=== PATIENT | female | born 1955 | race American Indian/Alaskan Native ===

== ENCOUNTER 2019-01-21 09:59 | Outpatient (CLI) | payer MEDICARE ==
[2019-01-21] MEDS ORDERED: XYLOCAINE TOPICAL 4% TP ONE (11:00)
== END 2019-01-21 10:00 | disposition home or self-care (01) ==
LOC: WOUND 09:59
PROVIDERS: ATTEND Surgery
DX: E11.621 Type 2 diabetes mellitus with foot ulcer (principal); L97.512 Non-pressure chronic ulcer of other part of right foot with fat layer exposed; E11.22 Type 2 diabetes mellitus with diabetic chronic kidney disease; I12.0 Hypertensive chronic kidney disease with stage 5 chronic kidney disease or end stage renal disease; N18.6 End stage renal disease; E11.40 Type 2 diabetes mellitus with diabetic neuropathy, unspecified; F17.210 Nicotine dependence, cigarettes, uncomplicated; Z99.2 Dependence on renal dialysis; Z86.73 Personal history of transient ischemic attack (TIA), and cerebral infarction without residual deficits
CPT/HCPCS: 11043; G0463; 99205

== ENCOUNTER 2019-01-28 10:58 | Outpatient (CLI) | payer MEDICARE ==
[2019-01-28] MEDS ORDERED: SILVER NITRATE TP ONE (11:07)
[2019-01-28] MEDS ORDERED: XYLOCAINE TOPICAL 4% TP ONE (11:07)
== END 2019-01-28 10:59 | disposition home or self-care (01) ==
LOC: WOUND 10:58
PROVIDERS: ATTEND Surgery
DX: E11.621 Type 2 diabetes mellitus with foot ulcer (principal); L97.512 Non-pressure chronic ulcer of other part of right foot with fat layer exposed; E11.22 Type 2 diabetes mellitus with diabetic chronic kidney disease; I12.0 Hypertensive chronic kidney disease with stage 5 chronic kidney disease or end stage renal disease; N18.6 End stage renal disease; E11.40 Type 2 diabetes mellitus with diabetic neuropathy, unspecified; F17.210 Nicotine dependence, cigarettes, uncomplicated; Z99.2 Dependence on renal dialysis; Z86.73 Personal history of transient ischemic attack (TIA), and cerebral infarction without residual deficits
CPT/HCPCS: 36415; 71046; 73721; 80048; 83036; 93925

== ENCOUNTER 2019-01-28 12:15 | Outpatient (CLI) | payer MEDICARE ==
[2019-01-28 13:24] LABS: Calcium 8.9 mg/dL (8.4-10.2)
--- NOTE | 2019-01-28 20:14 | XRay Report ---
PROCEDURE: XR CHEST ROUTINE 2V TECHNIQUE: PA and lateral chest radiographs were obtained. HISTORY: E11.621 TYPE 2 DM/L97.413 NONPRESSURE CHRONIC ULCER OF R HEEL COMPARISONS: None. FINDINGS: Heart: Normal. Mediastinum/Vessels: Normal. Lungs/Pleural space: Normal. Bony thorax: No acute osseous abnormality. There is a left-sided dialysis catheter catheter tips at the cavoatrial junction IMPRESSION: Normal examination. This document is electronically signed by Kelvin Escobedo MD., January 28 2019 08:12:11 PM ET
--- NOTE | 2019-01-28 20:28 | Magnetic Resonance Report ---
PROCEDURE: MRI RIGHT ANKLE WITHOUT CONTRAST TECHNIQUE: Magnetic resonance imaging of the RIGHT ankle was performed using standard pulse sequence s. CPT 53157 HISTORY: Chronic ulceration right heel. Pain. COMPARISONS: None . FINDINGS: The signal intensity from the bones of the ankle appear normal. No signal changes are seen that would suggest osteomyelitis. There appears to be a cutaneous ulcer visualized posterior aspect of the uret er just posterior to the insertion of the Achilles tendon on the calcaneus. The Achilles tendon itsel f appears normal as are the adjacent bony structures. The plantar fascia is also unremarkable. The ti biotalar joint space is well-preserved. The tibialis posterior, the flexor digitorum longus and flexor hallucis longus as well as the peroneu s tendons are intact. The anterior talofibular ligament and posterior talofibular ligaments appear in tact. Deltoid ligament is unremarkable. IMPRESSION: Small cutaneous ulceration visualized posterior aspect of the heel just posterior to the insertion of the Achilles tendon on the calcaneus. No other abnormalities are identified. No evidenc e of osteomyelitis. . This document is electronically signed by Oz Stevens MD., January 28 2019 08:26:59 PM ET
--- NOTE | 2019-01-30 13:36 | Vascular Lab Report ---
PROCEDURE: VL ARTERIAL DUPLEX LE BILAT TECHNIQUE: Arterial duplex Doppler ultrasound of bilateral lower extremities. HISTORY: E11.621 TYPE 2 DM/L97.413 NONPRESSURE CHRONIC ULCER OF HEEL COMPARISON: None FINDINGS: There is elevated velocity at the right superficial femoral artery origin measured at 225 cm/s. There is a segment of occlusion involving the mid superficial femoral artery. This is reconstituted mid to distally. There is flow in the calf arteries although slightly diminished. Flow appears monophasic t hroughout the majority of right lower extremity. On the left there is elevated flow velocity in the proximal SFA measured up to 324 cm/s. There is als o elevated flow velocity in the deep femoral artery measured at 379 cm/s.. This suggests stenosis in both areas. In the right common femoral artery there is mild relative elevation in flow velocity yoon ured at 192 cm/s as opposed to 82 cm/s proximally. This suggests mild stenosis. There is predominantl y monophasic flow throughout the left lower extremity. IMPRESSION: Monophasic flow throughout lower extremities indicative of bilateral significant arterial disease. Short occluded segment of right superficial femoral artery with reconstituted in the mid to distal SF A. Also findings suggesting involving proximal right SFA. Findings indicate stenosis of greater than 75% involving proximal left SFA and deep femoral artery. P robable mild stenosis involving the mid common femoral artery on the left as well. This document is electronically signed by Verito Chiang MD., January 30 2019 01:33:54 PM ET
== END 2019-01-28 12:16 | disposition home or self-care (01) ==
LOC: VAS 12:15
PROVIDERS: ATTEND Surgery
DX: E11.621 Type 2 diabetes mellitus with foot ulcer (principal); L97.412 Non-pressure chronic ulcer of right heel and midfoot with fat layer exposed; I77.89 Other specified disorders of arteries and arterioles
CPT/HCPCS: 36415; 71046; 73721; 80048; 83036; 93925

== ENCOUNTER 2019-02-04 10:59 | Outpatient (CLI) | payer MEDICARE ==
[2019-02-04] MEDS ORDERED: XYLOCAINE TOPICAL 4% TP ONE (11:03)
[2019-02-04] MEDS ORDERED: SILVER NITRATE TP ONE (11:03)
== END 2019-02-04 11:00 | disposition home or self-care (01) ==
LOC: WOUND 10:59
PROVIDERS: ATTEND Surgery
DX: E11.621 Type 2 diabetes mellitus with foot ulcer (principal); L97.512 Non-pressure chronic ulcer of other part of right foot with fat layer exposed; E11.22 Type 2 diabetes mellitus with diabetic chronic kidney disease; I12.0 Hypertensive chronic kidney disease with stage 5 chronic kidney disease or end stage renal disease; N18.6 End stage renal disease; E11.40 Type 2 diabetes mellitus with diabetic neuropathy, unspecified; F17.210 Nicotine dependence, cigarettes, uncomplicated; Z99.2 Dependence on renal dialysis; Z86.73 Personal history of transient ischemic attack (TIA), and cerebral infarction without residual deficits

== ENCOUNTER 2019-02-10 07:48 | Outpatient (CLI) | payer MEDICARE | END 2019-02-10 07:49 | disposition home or self-care (01) | LOC: WOUND 07:48 | PROVIDERS: ATTEND Surgery | DX: E11.621 Type 2 diabetes mellitus with foot ulcer (principal); L97.413 Non-pressure chronic ulcer of right heel and midfoot with necrosis of muscle; E11.22 Type 2 diabetes mellitus with diabetic chronic kidney disease; I12.0 Hypertensive chronic kidney disease with stage 5 chronic kidney disease or end stage renal disease; N18.6 End stage renal disease; E11.40 Type 2 diabetes mellitus with diabetic neuropathy, unspecified; F17.210 Nicotine dependence, cigarettes, uncomplicated; Z99.2 Dependence on renal dialysis; Z86.73 Personal history of transient ischemic attack (TIA), and cerebral infarction without residual deficits | CPT/HCPCS: 82962; G0277; 99183 ==

== ENCOUNTER 2019-02-13 07:38 | Outpatient (CLI) | payer MEDICARE ==
[2019-02-13] MEDS ORDERED: XYLOCAINE TOPICAL 4% TP ONE (11:00)
== END 2019-02-13 07:39 | disposition home or self-care (01) ==
LOC: WOUND 07:38
PROVIDERS: ATTEND Surgery
DX: E11.621 Type 2 diabetes mellitus with foot ulcer (principal); L97.413 Non-pressure chronic ulcer of right heel and midfoot with necrosis of muscle; E11.22 Type 2 diabetes mellitus with diabetic chronic kidney disease; I12.0 Hypertensive chronic kidney disease with stage 5 chronic kidney disease or end stage renal disease; N18.6 End stage renal disease; E11.40 Type 2 diabetes mellitus with diabetic neuropathy, unspecified; F17.210 Nicotine dependence, cigarettes, uncomplicated; Z99.2 Dependence on renal dialysis; Z86.73 Personal history of transient ischemic attack (TIA), and cerebral infarction without residual deficits
CPT/HCPCS: 11044; G0277; 82962; 99183

== ENCOUNTER 2019-02-14 08:00 | Outpatient (CLI) | payer MEDICARE | END 2019-02-14 08:01 | disposition home or self-care (01) | LOC: WOUND 08:00 | PROVIDERS: ATTEND Surgery | DX: E11.621 Type 2 diabetes mellitus with foot ulcer (principal); L97.413 Non-pressure chronic ulcer of right heel and midfoot with necrosis of muscle; E11.22 Type 2 diabetes mellitus with diabetic chronic kidney disease; I12.0 Hypertensive chronic kidney disease with stage 5 chronic kidney disease or end stage renal disease; N18.6 End stage renal disease; E11.40 Type 2 diabetes mellitus with diabetic neuropathy, unspecified; F17.210 Nicotine dependence, cigarettes, uncomplicated; Z99.2 Dependence on renal dialysis; Z86.73 Personal history of transient ischemic attack (TIA), and cerebral infarction without residual deficits | CPT/HCPCS: 82962; 99183; G0277 ==

== ENCOUNTER 2019-02-17 07:44 | Outpatient (CLI) | payer MEDICARE | END 2019-02-17 07:45 | disposition home or self-care (01) | LOC: WOUND 07:44 | PROVIDERS: ATTEND Surgery | DX: E11.621 Type 2 diabetes mellitus with foot ulcer (principal); L97.413 Non-pressure chronic ulcer of right heel and midfoot with necrosis of muscle; E11.22 Type 2 diabetes mellitus with diabetic chronic kidney disease; N18.6 End stage renal disease; I12.0 Hypertensive chronic kidney disease with stage 5 chronic kidney disease or end stage renal disease; E11.40 Type 2 diabetes mellitus with diabetic neuropathy, unspecified; F17.210 Nicotine dependence, cigarettes, uncomplicated; Z99.2 Dependence on renal dialysis; Z86.73 Personal history of transient ischemic attack (TIA), and cerebral infarction without residual deficits | CPT/HCPCS: 82962; G0277; 99183 ==

== ENCOUNTER 2019-02-19 07:51 | Outpatient (CLI) | payer MEDICARE | END 2019-02-19 07:52 | disposition home or self-care (01) | LOC: WOUND 07:51 | PROVIDERS: ATTEND Surgery | DX: E11.621 Type 2 diabetes mellitus with foot ulcer (principal); L97.413 Non-pressure chronic ulcer of right heel and midfoot with necrosis of muscle; E11.22 Type 2 diabetes mellitus with diabetic chronic kidney disease; N18.6 End stage renal disease; I12.0 Hypertensive chronic kidney disease with stage 5 chronic kidney disease or end stage renal disease; E11.40 Type 2 diabetes mellitus with diabetic neuropathy, unspecified; F17.210 Nicotine dependence, cigarettes, uncomplicated; Z99.2 Dependence on renal dialysis; Z86.73 Personal history of transient ischemic attack (TIA), and cerebral infarction without residual deficits | CPT/HCPCS: 82962; G0277; 99183 ==

== ENCOUNTER 2019-02-20 06:59 | Outpatient (CLI) | payer MEDICARE | END 2019-02-20 07:00 | disposition home or self-care (01) | LOC: WOUND 06:59 | PROVIDERS: ATTEND Surgery | DX: E11.621 Type 2 diabetes mellitus with foot ulcer (principal); L97.413 Non-pressure chronic ulcer of right heel and midfoot with necrosis of muscle; E11.22 Type 2 diabetes mellitus with diabetic chronic kidney disease; N18.6 End stage renal disease; I12.0 Hypertensive chronic kidney disease with stage 5 chronic kidney disease or end stage renal disease; E11.40 Type 2 diabetes mellitus with diabetic neuropathy, unspecified; F17.210 Nicotine dependence, cigarettes, uncomplicated; Z99.2 Dependence on renal dialysis; Z86.73 Personal history of transient ischemic attack (TIA), and cerebral infarction without residual deficits | CPT/HCPCS: 82962; G0277; 99183 ==

== ENCOUNTER 2019-02-25 07:46 | Outpatient (CLI) | payer MEDICARE | END 2019-02-25 07:47 | disposition home or self-care (01) | LOC: WOUND 07:46 | PROVIDERS: ATTEND Surgery | DX: E11.621 Type 2 diabetes mellitus with foot ulcer (principal); L97.413 Non-pressure chronic ulcer of right heel and midfoot with necrosis of muscle; E11.22 Type 2 diabetes mellitus with diabetic chronic kidney disease; N18.6 End stage renal disease; I12.0 Hypertensive chronic kidney disease with stage 5 chronic kidney disease or end stage renal disease; E11.40 Type 2 diabetes mellitus with diabetic neuropathy, unspecified; F17.210 Nicotine dependence, cigarettes, uncomplicated; Z99.2 Dependence on renal dialysis; Z86.73 Personal history of transient ischemic attack (TIA), and cerebral infarction without residual deficits | CPT/HCPCS: 82962; G0277; 99183 ==

== ENCOUNTER 2019-02-26 07:48 | Outpatient (CLI) | payer MEDICARE ==
[2019-02-26] MEDS ORDERED: SILVER NITRATE TP ONE (09:30)
[2019-02-26] MEDS ORDERED: XYLOCAINE TOPICAL 4% TP ONE (09:30)
== END 2019-02-26 07:49 | disposition home or self-care (01) ==
LOC: WOUND 07:48
PROVIDERS: ATTEND Surgery
DX: E11.621 Type 2 diabetes mellitus with foot ulcer (principal); L97.413 Non-pressure chronic ulcer of right heel and midfoot with necrosis of muscle; E11.22 Type 2 diabetes mellitus with diabetic chronic kidney disease; N18.6 End stage renal disease; I12.0 Hypertensive chronic kidney disease with stage 5 chronic kidney disease or end stage renal disease; E11.40 Type 2 diabetes mellitus with diabetic neuropathy, unspecified; F17.210 Nicotine dependence, cigarettes, uncomplicated; Z99.2 Dependence on renal dialysis; Z86.73 Personal history of transient ischemic attack (TIA), and cerebral infarction without residual deficits
CPT/HCPCS: 11043; 82962; G0277; 99183

== ENCOUNTER 2019-02-28 07:48 | Outpatient (CLI) | payer MEDICARE | END 2019-02-28 07:49 | disposition home or self-care (01) | LOC: WOUND 07:48 | PROVIDERS: ATTEND Surgery | DX: E11.621 Type 2 diabetes mellitus with foot ulcer (principal); L97.413 Non-pressure chronic ulcer of right heel and midfoot with necrosis of muscle; E11.22 Type 2 diabetes mellitus with diabetic chronic kidney disease; N18.6 End stage renal disease; I12.0 Hypertensive chronic kidney disease with stage 5 chronic kidney disease or end stage renal disease; E11.40 Type 2 diabetes mellitus with diabetic neuropathy, unspecified; F17.210 Nicotine dependence, cigarettes, uncomplicated; Z99.2 Dependence on renal dialysis; Z86.73 Personal history of transient ischemic attack (TIA), and cerebral infarction without residual deficits | CPT/HCPCS: 82962; G0277; 99183 ==

== ENCOUNTER 2019-03-03 07:53 | Outpatient (CLI) | payer MEDICARE | END 2019-03-03 07:54 | disposition home or self-care (01) | LOC: WOUND 07:53 | PROVIDERS: ATTEND Surgery | DX: E11.621 Type 2 diabetes mellitus with foot ulcer (principal); L97.413 Non-pressure chronic ulcer of right heel and midfoot with necrosis of muscle; E11.22 Type 2 diabetes mellitus with diabetic chronic kidney disease; N18.6 End stage renal disease; I12.0 Hypertensive chronic kidney disease with stage 5 chronic kidney disease or end stage renal disease; E11.40 Type 2 diabetes mellitus with diabetic neuropathy, unspecified; F17.210 Nicotine dependence, cigarettes, uncomplicated; Z99.2 Dependence on renal dialysis; Z86.73 Personal history of transient ischemic attack (TIA), and cerebral infarction without residual deficits | CPT/HCPCS: 82962; G0277; 99183 ==

== ENCOUNTER 2019-03-04 07:47 | Outpatient (CLI) | payer MEDICARE | END 2019-03-04 07:48 | disposition home or self-care (01) | LOC: WOUND 07:47 | PROVIDERS: ATTEND Surgery | DX: E11.621 Type 2 diabetes mellitus with foot ulcer (principal); L97.413 Non-pressure chronic ulcer of right heel and midfoot with necrosis of muscle; E11.22 Type 2 diabetes mellitus with diabetic chronic kidney disease; N18.6 End stage renal disease; I12.0 Hypertensive chronic kidney disease with stage 5 chronic kidney disease or end stage renal disease; E11.40 Type 2 diabetes mellitus with diabetic neuropathy, unspecified; F17.210 Nicotine dependence, cigarettes, uncomplicated; Z99.2 Dependence on renal dialysis; Z86.73 Personal history of transient ischemic attack (TIA), and cerebral infarction without residual deficits | CPT/HCPCS: 82962; G0277; 99183 ==

== ENCOUNTER 2019-03-05 07:48 | Outpatient (CLI) | payer MEDICARE | END 2019-03-05 07:49 | disposition home or self-care (01) | LOC: WOUND 07:48 | PROVIDERS: ATTEND Surgery | DX: E11.621 Type 2 diabetes mellitus with foot ulcer (principal); L97.413 Non-pressure chronic ulcer of right heel and midfoot with necrosis of muscle; E11.22 Type 2 diabetes mellitus with diabetic chronic kidney disease; N18.6 End stage renal disease; I12.0 Hypertensive chronic kidney disease with stage 5 chronic kidney disease or end stage renal disease; E11.40 Type 2 diabetes mellitus with diabetic neuropathy, unspecified; F17.210 Nicotine dependence, cigarettes, uncomplicated; Z99.2 Dependence on renal dialysis; Z86.73 Personal history of transient ischemic attack (TIA), and cerebral infarction without residual deficits | CPT/HCPCS: 82962; G0277; 99183 ==